=== PATIENT | male | born 1965 | race Caucasian/White ===

== ENCOUNTER → 2017-04-07 11:47 | Observation (INO) ==
--- NOTE | 2017-04-06 17:34 | Anesthesia Evaluation PreOp ---
Date of Encounter: 04/06/17 Time of Encounter: 17:33 - Past History Planned Operation: Exploration R Forearm, Tendon repair Cardiac History: HTN, Hyperlipidemia (maintained on Simvastatin) Pulmonary History: GARY Dx (Not yet formally dx) PL[employer] WORKER History: Other (Chronic pain maintained on Gabapentin, Mobic) Other Medical History: GERD (maintained on Prilosec) Anesthesia History: No Prior Anesthetic Complications, Past Anesthesia Medications and Allergies 3 Allergy/AdvReac Type Severity Reaction Status Date / Time No Known Allergies Allergy Verified 04/06/17 17:59 - Meds/Allergy Pre-op Review Medications Reviewed: Yes Allergies Reviewed: Yes Beta Blockers on Current Med List: No Anesthesia Results - Labs 04/06/17 17:58 04/06/17 17:58 Anesthesia Exam Vital Signs Temp Pulse Resp BP Pulse Ox 04/06/17 17:47 98.8 F 77 18 127/86 95 Intake and Output 04/06/17 04/06/17 04/06/17 07:59 15:59 23:59 Other: Weight 92 kg Patient Weight 04/06/17 23:59 Weight 92 kg Height: 5'10" Weight: 202# BMI = 29 NPO (# of Hours): 0800 - HEENT Pupil (Motor): Pupils equal, EOMI Mallampati: II Teeth: Normal Oral Opening: Greater than 3 - PLANT N[employer] WORKER LOC: Oriented PL[employer] WORKER Motor: Normal RUE, Normal LUE, Normal RLE, Normal LLE, Normal Face [employer] WORKER Sensory: Normal: RUE, LUE, RLE, LLE, Face - Cardiac Rhythm: Regular Murmur: None - Pulmonary Breath Sounds: bilateral Clear Respiratory Effort: Symmetrical Anesthesia Assess/Plan ASA Score: 2 (HTN, Chol, GARY) Modified [place] Scale for Level of Consciousness: Cooperative, oriented, and tranquil Anesthetic Plan: General Monitoring Plan: Standard Monitors Recovery Plan: PACU Anes Supervising Prov Stmt: Pt seen/evaluated, R&B Discussed, question answered and consent obtained. Adam Hurst MD
[2017-04-06 18:12] LABS: Hematocrit 41.1 % (37.5-50.1); Hemoglobin 14.2 g/dL (12.9-16.9); Mean Corpuscular HGB Conc 34.5 g/dL (31.6-35.5); Mean Corpuscular Hemoglobin 30.6 pg (28.0-33.3); Mean Corpuscular Volume 88.6 fL (83.0-100.0); Platelet Count 292 K/mcL (140-400); Red Blood Count 4.64 M/mcL (4.19-5.50); Red Cell Distribution Width 12.5 % (11.5-14.5)
[2017-04-06 18:17] LABS: INR 1.1; Prothrombin Time 11.6 Seconds (9.4-12.1)
[2017-04-06 18:30] LABS: BUN/Creatinine Ratio 16 (6-26); Blood Urea Nitrogen 17 mg/dL (6-20); Calcium 9.4 mg/dL (8.6-10.3); Carbon Dioxide 26 mEq/L (23-29); Chloride 103 mEq/L (98-107); Glucose 114 mg/dL (70-105); Osmolality,Calculated 288 (280-300); Potassium 3.8 mEq/L (3.5-5.1); Sodium 138 mEq/L (136-145); eGFR For African Americans > 60 (> 60); eGFR For Non-African Americans > 60 (> 60)
--- NOTE | 2017-04-06 20:51 | Anesthesia Evaluation Post Op ---
Date of Encounter: 04/06/17 Time of Encounter: 20:50 - Vital Signs Vital Signs: Vital Signs/O2 Sat, Most Current Temp Pulse Resp BP Pulse Ox 99 F 67 16 123/79 99 04/06/17 20:32 04/06/17 20:42 04/06/17 20:42 04/06/17 20:42 04/06/17 20:42 - Lungs Lungs: Clear Ascult./Percussion - Airway Airway: Non-obstructed - Cardiovascular Regular Rate - Mental Status Mental Status: Alert & Oriented, Answers Appropriately - Pain Pain Scale: 2 Pain Scale used: Numeric (1 - 10) - Nausea Vomiting Nausea Vomiting: Not Present - Hydration Hydration: Ice chips, Has not voided - Discharge PostOp Status: Transfer Patient to floor
--- NOTE | 2017-04-06 20:57 | Orthopedic History & Physical ---
Date of Encounter: 04/06/17 Time of Encounter: 17:00 History of Present Illness HPI: This history and physical exam is redictated as it was lost previously. Mr. Gonzalez is a 51 year old male who was at the [facility] emergency department after his right forearm got injured when a log pinned it to a ragland pear picker. 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 He is right-hand dominant. His wound was evaluated irrigated and closed in the emergency department and there was concern for tendon injury. There is no concern for neurovascular injury. I did see him in the office today which was the same day of the injury and the patient complains of isolated pain to the volar forearm which is in good control. Mild numbness and tingling to the volar and radial aspect of the forearm but intact hand sensation. He does complain of posterior right thoracic back pain which is worse with deep breaths in. When breathing normally he has no other symptoms. Pain is worse in the right hand with movement and better with rest. No other modifying factors. Past Med Surg Social Fam HX - Past Medical History Medical history: hypertension Medications and Allergies 3 Allergy/AdvReac Type Severity Reaction Status Date / Time No Known Allergies Allergy Verified 04/06/17 17:59 All Systems Reviewed: The remainder of the systems were reviewed and are negative Physical Exam - Constitutional Vitals: Temp Pulse Resp BP Pulse Ox 98.8 F 77 18 127/86 95 04/06/17 17:47 04/06/17 17:47 04/06/17 17:47 04/06/17 17:47 04/06/17 17:47 Results - Labs Result Diagrams: 04/06/17 17:58 04/06/17 17:58 Labs: Abnormal lab results WBC 15.3 K/mcL (4.3-11.1) H 04/06/17 17:58 MPV 9.0 fL (9.4-12.4) L 04/06/17 17:58 Glucose 114 mg/dL (70-105) H 04/06/17 17:58 H & H 04/06/17 Range/Units 17:58 Hgb 14.2 (12.9-16.9) g/dL Hct 41.1 (37.5-50.1) % All other labs normal.
--- NOTE | 2017-04-06 21:03 | Orthopedics Progress Note ---
Date of Encounter: 04/06/17 Time of Encounter: 21:02 Subjective Interval history: Official H and P has been saved on another account for this patient. IT is working to bridge it over. Objective Vital signs: Vital Signs Temp Pulse Resp BP Pulse Ox 04/06/17 20:52 69 16 126/77 100 04/06/17 20:42 67 16 123/79 99 04/06/17 20:32 99 F 72 14 120/83 100 04/06/17 17:47 98.8 F 77 18 127/86 95 Intake and Output 04/06/17 04/06/17 04/06/17 07:59 15:59 23:59 Output Total 5 / 5 Balance -5 / -5 Output: Estimated Blood Loss 5 / 5 Other: Weight 92 kg Patient Weight 04/06/17 23:59 Weight 92 kg - Labs CBC & BMP: 04/06/17 17:58 04/06/17 17:58 Labs: Abnormal lab results WBC 15.3 K/mcL (4.3-11.1) H 04/06/17 17:58 MPV 9.0 fL (9.4-12.4) L 04/06/17 17:58 Glucose 114 mg/dL (70-105) H 04/06/17 17:58 Consult Discharge Plan - Plan Referrals: NONE,PCP [Primary Care Provider] -
--- NOTE | 2017-04-06 21:04 | Orthopedic Operative Note ---
Date of procedure: 04/06/17 Procedure: OPERATIVE REPORT DATE OF PROCEDURE: 04/06/2017 SURGEON: Valerio Castrejon MD COUNTERSINKER BALANCE SCREW HOLE(S): There were no assistants PREOPERATIVE DIAGNOSIS: Right forearm laceration POSTOPERATIVE DIAGNOSIS: Right forearm laceration with flexor pollicis longus injury and radial artery injury PROCEDURE: Debridement and irrigation of the right forearm with flexor pollicis longus repair and radial artery ligation ANESTHESIA: General anesthesia PREOPERATIVE ANTIBIOTICS: 2 g of Ancef ESTIMATED BLOOD LOSS: 10 milliliters TOURNIQUET TIME: 39 minutes at 250 mmHg SPECIMENS: There were no specimens LOCAL INJECTION: 50/50 mixture of 1% lidocaine with 1:100,000 epinephrine and 0.5% bupivacaine PREOPERATIVE NOTE AND INDICATIONS: This patient is a 51-year-old male with a right forearm laceration after being pinned by a log and the ragland worm picker. Given the inability to flex the thumb and deep nature of the lesion the recommendation was for exploration. The surgical plan was discussed with the patient. The risks, benefits, alternatives, and potential complications of this procedure were discussed with the patient including injury to veins, arteries, nerves, tendons, ligaments, and bone. Also discussed were the risks of infection, bleeding, pain, blood clots, the possible need for a blood transfusion, the possible need for further procedures, heart attack, stroke, and . All of this was explained in simple terms, and the patient verbalized understanding and wished to proceed. Consent was given to proceed with surgery. PROCEDURE: The patient was seen in the preoperative holding area where the identify and the consent were confirmed. The right forearm was marked. Final questions were answered. The patient was brought back to the operating room and placed supine on the operating room table. A huddle was performed with the patient and all vital surgical team members confirming patient identity, the correct procedure, and the correct operative site. Gentle anesthesia was administered. The right upper extremity was prepped and draped in the usual sterile fashion. A surgical time out was performed immediately preceding the incision with all personnel in the operating room to confirm patient identity, the correct operative site and extremity, correct radiographic studies, availability of appropriate surgical equipment, and agreement on the planned procedure. The limb was exsanguinated and the tourniquet was inflated. The stitches from the emergency department were taken out. The transverse wound was opened and was noted to be deep tracking directly down to the radial shaft. Along the ulnar aspect of the laceration a surgical longitudinal incision was made creating an L-shaped wound. This allowed a full-thickness flap to be elevated to help facilitate exposure. Along the radial aspect of the wound the brachioradialis was found to be completely intact and directly underneath this the superficial radial nerve was also found to be intact. The radial artery was encountered and noted to be completely lacerated with significant injury along a 2 cm distance on each side with clot in both ends. It was at this point that I paged Dr. Shields of vascular surgery to discuss the need for repair /reconstruction. Prior to inflating the tourniquet the patient had excellent perfusion, brisk capillary refill, and retrograde flow into the radial artery and due to this we both felt that ligation of the radial was the more reasonable option. This was done on both sides with 3-0 silk ties 2. Dissection proceeded and there was noted to be a complete injury through the flexor pollicis longus muscle belly well proximal to the tendon. The median nerve was identified and noted to be completely intact. The injury did track down along the interosseous membrane beneath the digital flexors to the ulnar side of the forearm where the ulnar neurovascular bundle was discovered to be intact. The wound was copiously irrigated and the muscle belly of the flexor pollicis longus brought together with 0 Vicryl stitches. The wound was copiously irrigated and the incision was closed with 3-0 Vicryl stitches and 4- 0 nylon. The tourniquet was deflated and the hand pinked up nicely with brisk capillary refill and excellent perfusion. A sterile dressing and thumb spica splint was applied with the wrist and thumb in slight flexion. The instrument, sponge, and needle counts were correct after wound closure. POST OPERATIVE PLAN: Weight Bearing: Nonweightbearing through the right upper extremity. DVT Prophylaxis: Ambulation Activity: Avoid aggressive activities with the right upper extremity. Wound Care: Keep the dressing clean, dry, and intact. Pain Control: [place] Perioperative antibiotic prophylaxis: 2 g of Ancef 2 doses Follow Up: 10 days for stitch removal Was there an hearing and speech assistant present: No Estimated blood loss (cc): 10
[2017-04-06] MEDS: *HR* OxyCODONE Immed Rel 5 MG TABLET PO PRN (21:51)
[2017-04-06] MEDS: CeFAZolin Syringe 2,000MG/20 ML SYR IVPB SCH (23:28)
[2017-04-07] MEDS: *HR* OxyCODONE Immed Rel 5 MG TABLET PO PRN ×2 (04:27→10:30)
--- NOTE | 2017-04-07 07:27 | Discharge Summary ---
Date of Encounter: 04/07/17 Time of Encounter: 07:25 - Discharge Diagnosis (1) Laceration of right forearm Priority: Primary Status: Acute Qualifiers: Qualified Code(s): S51.811A - Laceration without foreign body of right forearm, initial encounter - Hospital Course Hospital course: Mr. Gonzalez is a 51 year old male - Time Spent with Patient Total time spent providing and/or coordinating discharge services: - Discharge Medications Prescriptions: Oxycodone HCl/Acetaminophen [Percocet 5-325 mg Tablet] 1 each PO Q6H PRN 7 Days #28 tablet PRN Reason: Pain Home Medications: Duloxetine HCl [Cymbalta] 60 mg PO HS 04/06/17 [History] Gabapentin [Neurontin] 300 mg PO BID 04/06/17 [History] Gabapentin [Neurontin] 600 mg PO HS 04/06/17 [History] Lisinopril-HCTZ 20-12.5 [Prinzide 20-12.5] See Protocol PO DAILY 04/06/17 [ History] Meloxicam 15 mg PO DAILY 04/06/17 [History] Omeprazole [PriLOSEC] 20 mg PO DAILY 04/06/17 [History] Restoril 25 mg PO PRN PRN 04/06/17 [History] Simvastatin [Zocor] 20 mg PO HS 04/06/17 [History] Zolpidem [Ambien] 10 mg PO HS 04/06/17 [History] Oxycodone HCl/Acetaminophen [Percocet 5-325 mg Tablet] 1 each PO Q6H PRN 7 Days #28 tablet 04/07/17 [Rx] Allergies/Adverse Reactions: 3 Allergy/AdvReac Type Severity Reaction Status Date / Time No Known Allergies Allergy Verified 04/06/17 17:59 Date of admission: 04/06/17 17:13 Primary care physician: PCP NONE Consults: 04/06/17 20:35 Consult to Physician [CONS] Routine Consulting Provider: Everton Shields Reason for Consult: Right radial artery laceration Time Notified: 20:00 Call Completed: Yes - VTE Documentation of Mechanical Device: Intermittent pneumatic compression device Labs on day of discharge: Labs from last 24 hours 04/06/17 04/06/17 04/06/17 17:58 17:58 17:58 WBC 15.3 H RBC 4.64 Hgb 14.2 Hct 41.1 MCV 88.6 MCH 30.6 MCHC 34.5 RDW 12.5 Plt Count 292 MPV 9.0 L PT 11.6 INR 1.1 Sodium 138 Potassium 3.8 Chloride 103 Carbon Dioxide 26 BUN 17 Creatinine 1.09 Est GFR ( Amer) > 60 Est GFR (Non-Af Amer) > 60 BUN/Creatinine Ratio 16 Glucose 114 H Calculated Osmolality 288 Calcium 9.4 - Patient Status Disposition: Home, Self-Care Condition: Good - Discharge Instructions Follow Up With: NONE,PCP [Primary Care Provider] - Additional Instructions: DISCHARGE INSTRUCTIONS Dr. Castrejon DISCHARGE DIAGNOSIS/PROCEDURE Exploration of right forearm with repair of the flexor pollicis longus PAIN AND SWELLING: The goal of pain medication is to reduce your pain and make you more comfortable. Pain medication may not completely relieve all discomfort. Control of swelling is an important part of pain control. To control swelling and pain: 1. Use a pillow to elevate the hand 10 to 14 inches above the heart level. 2. If your splint is positioned so that one or more of your fingers is free, then we encourage gentle movement of those fingers. If the splint blocks your motion, then we ask that you avoid motion of these fingers or hand. If the splint does not include the elbow, then we encourage you to bend and straighten your elbow 4 to 5 times per day to prevent stiffness. 3. Use ice packs over the affected area (on the soft side of the dressings is preferred - if there is one) for 10 minute intervals every hour while the hand is elevated. Be careful, however, to keep the dressing dry! 4. If you were given a sling, then wear the sling on when walking around for long periods of time. Otherwise, elevated as directed above. Continued use of the sling does not provide proper elevation of the extremity to prevent swelling. 5. The anesthesiologist may have given you a nerve block (an injection near your neck or shoulder) to numb your hand and arm. This is to help control your pain. Therefore, it is normal to experience some numbness and tingling in your arm and fingers up to approximately 18 hours after surgery. Your surgeon may have given a nerve block directly at the site of surgery which may also cause some numbness and tingling to the affected area. ACTIVITY: Avoid aggressive activities with the right upper extremity. WOUND CARE: Keep the wound clean, dry, and covered. The purpose of the dressing is to keep the surgical site protected and to promote healing. If you have a splint or a cast, it is designed to also help protect the surgical site. You may take a shower or bath with your dressing, splint, or cast in place, but you must keep it dry. One common way to do this is to place a bag over the area and seal with tape. If your dressing, splint, or cast becomes soaked, then phone our office as soon as possible. Unless otherwise instructed, do not remove your dressing or splint. There may be some bloody spotting on the dressing initially , and this is normal. Excessive bleeding that soaks the dressing must be reported to us. DRIVING: Do not drive while taking narcotic pain medications. DIET: Begin with clear liquids, and then increase your diet as you feel comfortable. MEDICATIONS: Pain: Percocet Your prescribed pain medication contains Tylenol. You must be careful not to exceed 4,000 mg (4 g) of Tylenol (or generic equivalent), from all sources, within a single 24-hour period. Gradually wean to Tylenol (or generic equivalent) for pain. Over the counter ibuprofen can be taken as directed in addition to your prescribed pain medication unless otherwise stated by your doctor. DO NOT TAKE IBUPROFEN IF YOU HAVE A HISTORY OF STOMACH ULCERS OR ARE TAKING BLOOD THINNERS LIKE COUMADIN OR PLAVIX. FOLLOW-UP Follow-up with Dr. Castrejon at the office 10 days from the surgery date for a post operative evaluation. Call the office at [phone] to schedule or confirm your appointment. WHEN TO CALL THE DOCTOR OR WHEN TO SEEK CARE BEFORE YOUR APPOINTMENT 1. Excess swelling or increased numbness not made better by elevating the hand and moving the fingers. 2. Uncontrolled pain. 3. A color change in your hand or fingers. 4. Worsening redness or drainage. 5. Fevers over 100.5 degrees F or 38.1 degrees C. 6. Any symptoms that bring concern to you. - Diet and Activity Diet: advance to your usual diet
--- NOTE | 2017-04-07 07:34 | Orthopedics Progress Note ---
Date of Encounter: 04/07/17 Time of Encounter: 07:31 - Assessment and Plan (1) Laceration of right forearm Current Visit: No Status: Acute Qualifiers: Qualified Code(s): S51.811A - Laceration without foreign body of right forearm, initial encounter Subjective Interval history: S: Resting in bed comfortably Meds are controlling the pain quite well. No new complaints. O: Afebrile and vital signs are stable Right upper extremity is in a thumb spica splint Exposed fingers are freely mobile, sensate, and well-perfused. Thumb is well perfused. Brisk capillary refill to all digits. A: Post exploration of the right forearm with ligation of the radial artery and repair of the flexor pollicis longus muscle belly P: At this point the patient is doing well clinically. Avoid aggressive activities with the right upper extremity. Keep the splint clean, dry, and intact. Follow-up in the office in 10 days for stitch removal and thumb spica cast placement. Stable for discharge pending signoff by vascular surgery. Objective Vital signs: Vital Signs Temp Pulse Resp BP Pulse Ox 04/07/17 04:30 97.8 F 65 15 112/77 100 04/06/17 23:31 98.4 F 63 16 131/87 99 04/06/17 21:53 98.4 F 62 15 133/86 100 04/06/17 21:23 98.1 F 64 14 134/78 99 04/06/17 21:02 98.9 F 70 16 114/80 100 04/06/17 20:52 69 16 126/77 100 04/06/17 20:42 67 16 123/79 99 04/06/17 20:32 99 F 72 14 120/83 100 04/06/17 17:47 98.8 F 77 18 127/86 95 Intake and Output 04/06/17 04/06/17 04/07/17 15:59 23:59 07:59 Intake Total 100 / 100 300 / 300 Output Total 480 / 480 700 / 700 Balance -380 / -380 -400 / -400 Intake: Oral 100 / 100 300 / 300 Output: Urine 475 / 475 700 / 700 Estimated Blood Loss 5 / 5 Other: Weight 92 kg - Labs CBC & BMP: 04/06/17 17:58 04/06/17 17:58 Labs: Abnormal lab results WBC 15.3 K/mcL (4.3-11.1) H 04/06/17 17:58 MPV 9.0 fL (9.4-12.4) L 04/06/17 17:58 Glucose 114 mg/dL (70-105) H 04/06/17 17:58 - VTE Documentation of Mechanical Device: Intermittent pneumatic compression device Consult Discharge Plan - Plan Additional Instructions: DISCHARGE INSTRUCTIONS Dr. Castrejon DISCHARGE DIAGNOSIS/PROCEDURE Exploration of right forearm with repair of the flexor pollicis longus PAIN AND SWELLING: The goal of pain medication is to reduce your pain and make you more comfortable. Pain medication may not completely relieve all discomfort. Control of swelling is an important part of pain control. To control swelling and pain: 1. Use a pillow to elevate the hand 10 to 14 inches above the heart level. 2. If your splint is positioned so that one or more of your fingers is free, then we encourage gentle movement of those fingers. If the splint blocks your motion, then we ask that you avoid motion of these fingers or hand. If the splint does not include the elbow, then we encourage you to bend and straighten your elbow 4 to 5 times per day to prevent stiffness. 3. Use ice packs over the affected area (on the soft side of the dressings is preferred - if there is one) for 10 minute intervals every hour while the hand is elevated. Be careful, however, to keep the dressing dry! 4. If you were given a sling, then wear the sling on when walking around for long periods of time. Otherwise, elevated as directed above. Continued use of the sling does not provide proper elevation of the extremity to prevent swelling. 5. The anesthesiologist may have given you a nerve block (an injection near your neck or shoulder) to numb your hand and arm. This is to help control your pain. Therefore, it is normal to experience some numbness and tingling in your arm and fingers up to approximately 18 hours after surgery. Your surgeon may have given a nerve block directly at the site of surgery which may also cause some numbness and tingling to the affected area. ACTIVITY: Avoid aggressive activities with the right upper extremity. WOUND CARE: Keep the wound clean, dry, and covered. The purpose of the dressing is to keep the surgical site protected and to promote healing. If you have a splint or a cast, it is designed to also help protect the surgical site. You may take a shower or bath with your dressing, splint, or cast in place, but you must keep it dry. One common way to do this is to place a bag over the area and seal with tape. If your dressing, splint, or cast becomes soaked, then phone our office as soon as possible. Unless otherwise instructed, do not remove your dressing or splint. There may be some bloody spotting on the dressing initially , and this is normal. Excessive bleeding that soaks the dressing must be reported to us. DRIVING: Do not drive while taking narcotic pain medications. DIET: Begin with clear liquids, and then increase your diet as you feel comfortable. MEDICATIONS: Pain: Percocet Your prescribed pain medication contains Tylenol. You must be careful not to exceed 4,000 mg (4 g) of Tylenol (or generic equivalent), from all sources, within a single 24-hour period. Gradually wean to Tylenol (or generic equivalent) for pain. Over the counter ibuprofen can be taken as directed in addition to your prescribed pain medication unless otherwise stated by your doctor. DO NOT TAKE IBUPROFEN IF YOU HAVE A HISTORY OF STOMACH ULCERS OR ARE TAKING BLOOD THINNERS LIKE COUMADIN OR PLAVIX. FOLLOW-UP Follow-up with Dr. Castrejon at the office 10 days from the surgery date for a post operative evaluation. Call the office at [phone] to schedule or confirm your appointment. WHEN TO CALL THE DOCTOR OR WHEN TO SEEK CARE BEFORE YOUR APPOINTMENT 1. Excess swelling or increased numbness not made better by elevating the hand and moving the fingers. 2. Uncontrolled pain. 3. A color change in your hand or fingers. 4. Worsening redness or drainage. 5. Fevers over 100.5 degrees F or 38.1 degrees C. 6. Any symptoms that bring concern to you. Referrals: NONE,PCP [Primary Care Provider] - Prescriptions: Oxycodone HCl/Acetaminophen [Percocet 5-325 mg Tablet] 1 each PO Q6H PRN 7 Days #28 tablet PRN Reason: Pain
[2017-04-07 07:54] VITALS: BP 116/76
[2017-04-07] MEDS: CeFAZolin Syringe 2,000MG/20 ML SYR IVPB SCH (09:59)
--- NOTE | 2017-04-07 11:02 | Vascular/Endovasc Consult Note ---
Date of Encounter: 04/07/17 Time of Encounter: 10:15 Assessment and Plan (1) Laceration of right forearm Current Visit: Yes Status: Acute Patient is status post trauma to right forearm with laceration and occlusion of right radial artery. The ulnar and interosseous vessels appear to be functioning well and there is a patent palmar arch by physical exam. I do not believe any further intervention is necessary and I do not recommend radial artery reconstruction. These issues were discussed with the patient and his . All questions were answered. The patient may be discharged from a vascular standpoint today. There is no indication for vascular surgery follow- up at this time. Qualifiers: Encounter type: initial encounter Qualified Code(s): S51.811A - Laceration without foreign body of right forearm, initial encounter - History of Present Illness Consult date: 04/07/17 Requesting physician: Valerio Castrejon Consult reason: Right upper extremity arterial injury Chief complaint: Right upper extremity injury History of present illness: Mr. 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 In between tree and part of the equipment he was working on. He was seen at the emergency room in [place] and then was transferred to a duodenal to see Dr. Castrejon in his office. The patient then was taken to the operating room last night as an emergency for exploration and repair as described in Dr. Castrejon's surgical note. As described in the preoperative notes patient in normal vascular perfusion to the right hand and fingers. He underwent successful repair last night. The patient is now seen on the hair on [address] On my visit with him this morning the patient has no complaints. He is feeling well. He denies any previous problems with upper extremity arterial injury or right hand injury. The patient has not had any formal noninvasive vascular testing. Past Med Surg Social Fam HX - Past Medical History Medical history: GERD, hyperlipidemia, hypertension - Social History Smoking Status: Never smoker Alcohol use: occasionally Drug use: none - Family History Father Living Status: Still Living Hx Family Cardiac Disorders: No Hx Family Respiratory Disorders: No Hx Family Cancer: Yes (SKIN CANCER) Hx Family GI Disorders: No Hx Family Genitourinary Disorders: No Hx Family Endocrine Disorder: No Hx Family Musculoskeletal Disorders: No Hx Family Neuromuscular Disorders: No Hx Family Neurologic Disorders: No Hx Family HEENT Disorders: No Hx Family Autoimmune Disorders: No Hx Family Reproductive Disorders: No Hx Family Psychosocial Disorders: No Hx Family Medical Disorders: No Mother Living Status: Still Living Hx Family Cardiac Disorders: Yes (HTN) Hx Family Respiratory Disorders: No Hx Family Cancer: No Hx Family GI Disorders: No Hx Family Genitourinary Disorders: No Hx Family Endocrine Disorder: No Hx Family Musculoskeletal Disorders: No Hx Family Neuromuscular Disorders: No Hx Family Neurologic Disorders: No Hx Family HEENT Disorders: No Hx Family Autoimmune Disorders: No Hx Family Reproductive Disorders: No Hx Family Psychosocial Disorders: No Hx Family Medical Disorders: No Medications and Allergies Duloxetine HCl [Cymbalta] 60 mg PO HS 04/06/17 [History] Gabapentin [Neurontin] 300 mg PO BID 04/06/17 [History] Gabapentin [Neurontin] 600 mg PO HS 04/06/17 [History] Lisinopril-HCTZ 20-12.5 [Prinzide 20-12.5] See Protocol PO DAILY 04/06/17 [ History] Meloxicam 15 mg PO DAILY 04/06/17 [History] Omeprazole [PriLOSEC] 20 mg PO DAILY 04/06/17 [History] Restoril 25 mg PO PRN PRN 04/06/17 [History] Simvastatin [Zocor] 20 mg PO HS 04/06/17 [History] Zolpidem [Ambien] 10 mg PO HS 04/06/17 [History] Oxycodone HCl/Acetaminophen [Percocet 5-325 mg Tablet] 1 each PO Q6H PRN 7 Days #28 tablet 04/07/17 [Rx] 3 Allergy/AdvReac Type Severity Reaction Status Date / Time No Known Allergies Allergy Verified 04/06/17 17:59 All Systems Review: The remainder of the systems were reviewed and are negative Exam Vital Signs, Last 4 Hours Temp Pulse Resp BP Pulse Ox 04/07/17 08:30 97 04/07/17 07:52 98.3 F 74 16 116/76 97 General: Present: Conversant, No Apparent Distress, Well nourished HEENT: Present: Trachea midline Neck: Absent: JVD Neuro: Present: Alert and responsive, Cranial nerves grossly intact Vascular: Present: Color/Temperature (The color and temperature of his hands and fingers are symmetrical.), Other (I partially remove the thumb splint dressing from his right forearm. I was unable to remove all of the dressing and so it therefore limited my ability to examine the extremity. However I was able to identify biphasic Doppler signals over the distal wrist at the ulnar and radial areas. In addition I found biphasic signals in the palmaris surface of the right hand and Doppler signals in fingers 2 through 5. The dome was enclosed within a splint and could not be adequately accessed for vascular evaluation.) Consult Discharge Plan - Plan Additional Instructions: DISCHARGE INSTRUCTIONS Dr. Castrejon DISCHARGE DIAGNOSIS/PROCEDURE Exploration of right forearm with repair of the flexor pollicis longus PAIN AND SWELLING: The goal of pain medication is to reduce your pain and make you more comfortable. Pain medication may not completely relieve all discomfort. Control of swelling is an important part of pain control. To control swelling and pain: 1. Use a pillow to elevate the hand 10 to 14 inches above the heart level. 2. If your splint is positioned so that one or more of your fingers is free, then we encourage gentle movement of those fingers. If the splint blocks your motion, then we ask that you avoid motion of these fingers or hand. If the splint does not include the elbow, then we encourage you to bend and straighten your elbow 4 to 5 times per day to prevent stiffness. 3. Use ice packs over the affected area (on the soft side of the dressings is preferred - if there is one) for 10 minute intervals every hour while the hand is elevated. Be careful, however, to keep the dressing dry! 4. If you were given a sling, then wear the sling on when walking around for long periods of time. Otherwise, elevated as directed above. Continued use of the sling does not provide proper elevation of the extremity to prevent swelling. 5. The anesthesiologist may have given you a nerve block (an injection near your neck or shoulder) to numb your hand and arm. This is to help control your pain. Therefore, it is normal to experience some numbness and tingling in your arm and fingers up to approximately 18 hours after surgery. Your surgeon may have given a nerve block directly at the site of surgery which may also cause some numbness and tingling to the affected area. ACTIVITY: Avoid aggressive activities with the right upper extremity. WOUND CARE: Keep the wound clean, dry, and covered. The purpose of the dressing is to keep the surgical site protected and to promote healing. If you have a splint or a cast, it is designed to also help protect the surgical site. You may take a shower or bath with your dressing, splint, or cast in place, but you must keep it dry. One common way to do this is to place a bag over the area and seal with tape. If your dressing, splint, or cast becomes soaked, then phone our office as soon as possible. Unless otherwise instructed, do not remove your dressing or splint. There may be some bloody spotting on the dressing initially , and this is normal. Excessive bleeding that soaks the dressing must be reported to us. DRIVING: Do not drive while taking narcotic pain medications. DIET: Begin with clear liquids, and then increase your diet as you feel comfortable. MEDICATIONS: Pain: Percocet Your prescribed pain medication contains Tylenol. You must be careful not to exceed 4,000 mg (4 g) of Tylenol (or generic equivalent), from all sources, within a single 24-hour period. Gradually wean to Tylenol (or generic equivalent) for pain. Over the counter ibuprofen can be taken as directed in addition to your prescribed pain medication unless otherwise stated by your doctor. DO NOT TAKE IBUPROFEN IF YOU HAVE A HISTORY OF STOMACH ULCERS OR ARE TAKING BLOOD THINNERS LIKE COUMADIN OR PLAVIX. FOLLOW-UP Follow-up with Dr. Castrejon at the office 10 days from the surgery date for a post operative evaluation. Call the office at [phone] to schedule or confirm your appointment. WHEN TO CALL THE DOCTOR OR WHEN TO SEEK CARE BEFORE YOUR APPOINTMENT 1. Excess swelling or increased numbness not made better by elevating the hand and moving the fingers. 2. Uncontrolled pain. 3. A color change in your hand or fingers. 4. Worsening redness or drainage. 5. Fevers over 100.5 degrees F or 38.1 degrees C. 6. Any symptoms that bring concern to you. Referrals: NONE,PCP [Primary Care Provider] - Prescriptions: Oxycodone HCl/Acetaminophen [Percocet 5-325 mg Tablet] 1 each PO Q6H PRN 7 Days #28 tablet PRN Reason: Pain
[~2017-04-07 11:47] MED LIST: *HR* FentaNYL (PF) 100 MCG/2 ML VIAL IVP PRN; *HR* FentaNYL (PF) 100 MCG/2 ML VIAL ONE; *HR* HYDROcodone/Acet 5/325 mg TABLET PO PRN; *HR* Midazolam HCl 2 MG/2 ML VIAL ONE; *HR* PHENYLEPHRINE 1,000 MCG/10 ML SYRINGE IVP ONE; *HR* Propofol 200 MG/20 ML VIAL IVP ONE; Acetaminophen 325 MG TABLET PO PRN; Acetaminophen IV 1,000 MG/100 ML INFUS..BTL ONE; Famotidine 20 MG/2 ML VIAL ONE; Gabapentin 300 MG CAPSULE PO SCH; Lidocaine -MPF 2% 2 ML VIAL ONE; Lidocaine -MPF 4% 5 ML AMPUL ONE; Lidocaine/EPI 1:100k 1% 50 ML VIAL INFILT ONE; Lisinopril-HCTZ 20-12.5mg TABLET PO SCH; MORPHINE SUL Oral CONC 10 MG/0.5 ML ORAL.SYG SL PRN; Metoclopramide 10 MG/2 ML VIAL ONE; Naloxone 0.4 MG/ML INJ IVP PRN; Ondansetron 4 MG/2 ML VIAL IVP ONE; Ondansetron 4 MG/2 ML VIAL ONE; Pregabalin 75 MG CAPSULE ONE; Ringers Solution, Lactated 1,000 ML IVC SCH; Temazepam 15 MG CAPSULE PO PRN
== END | disposition home or self-care (01) ==
LOC: 3NENU
PROVIDERS: ADMIT Orthopaedic Surgery Hand Surgery; ATTEND Orthopaedic Surgery Hand Surgery